=== PATIENT | male | born 1950 | race Hispanic/Latino ===

== ENCOUNTER 2018-01-15 06:52 | Day surgery (SDC) | payer OTHER, MEDICARE ==
[2018-01-06 16:39] VITALS: BP 124/59
[2018-01-06 16:49] LABS: BASOPHILS % (AUTO) 0.7 % (0.0-5.0); EOSINOPHILS % (AUTO) 2.5 % (0.0-8.0); HEMATOCRIT 43.5 % (42-54); LYMPHOCYTES % (AUTO) 27.3 % (21.0-51.0); MEAN CORPUSCULAR HEMOGLOBIN 30.3 pg (27.0-33.0); MEAN CORPUSCULAR HGB CONC 34.1 g/dL (32.0-36.0); MEAN CORPUSCULAR VOLUME 88.9 fL (79-99); MONOCYTES % (AUTO) 9.6 % (3.0-13.0); NEUTROPHILS % (AUTO) 59.9 % (40.0-77.0); PLATELET COUNT (AUTO) 211 K/uL (130-400); RED BLOOD CELL COUNT(AUTO) 4.89 MIL/uL (4.50-6.20); RED CELL DISTRIBUTION WIDTH 13.2 % (11.0-15.5); WHITE BLOOD COUNT (AUTO) 9.1 K/uL (4.8-10.8)
[2018-01-06 16:58] LABS: CREATININE 0.8 mg/dL (0.5-1.5); POTASSIUM 4.1 mmol/L (3.5-5.1)
[2018-01-15] VITALS (13 sets, daily range): BP systolic 105–159; BP diastolic 62–75
[~2018-01-15] VITALS: Ht 157.5 cm; Wt 59.2 kg
[~2018-01-15 06:52] MED LIST: ACET1TAB12 PO; ASPI-1197 PO; CEFTRIAXONE SODIUM 1 GM IVP SCH; DOCUSATE-SENNA PO; FINA5TAB41 PO; GENTAMICIN 80 MG/NS 100 ML PB 100 ML IV SCH; SIMV20TA6 PO; TAMS0.4C32 PO
[2018-01-15] MEDS ORDERED: LACTATED RINGERS 1000ML 1,000 ML IV ONE (07:53)
[2018-01-15] MEDS ORDERED: ONDANSETRON HCL 4 MG/2 ML VIAL ONE (09:53)
[2018-01-15] MEDS ORDERED: LIDOCAINE PF 2% 5ML ABBOJECT ONE (09:53)
[2018-01-15] MEDS ORDERED: DEXAMETHASONE SOD PHOSPHATE 10MG/ML 1ML VIAL ONE (09:53)
[2018-01-15] MEDS ORDERED: NEOSTIGMINE 5MG/5ML SYR IV ONE (09:53)
[2018-01-15] MEDS ORDERED: GLYCOPYRROLATE 0.2 MG/ML 5 ML VIAL ONE (09:53)
[2018-01-15] MEDS ORDERED: MIDAZOLAM HCL 1 MG/ML 2ML VIAL ONE (09:54)
[2018-01-15] MEDS ORDERED: FENTANYL CITRATE PF 50 MCG/1 ML 2ML VIAL ONE (09:54)
[2018-01-15] MEDS ORDERED: PROPOFOL 10 MG/ML 20ML VIAL IV ONE (09:54)
[2018-01-15] MEDS ORDERED: ROCURONIUM BROMIDE 10MG/1ML 5ML VL ONE (09:54)
[2018-01-15] MEDS ORDERED: EPHEDRINE SULFATE 50 MG/ML AMPULE ONE (10:30)
[2018-01-15] MEDS ORDERED: OPIUM/BELLADONNA ALKALOIDS 1 EACH SUPP.RECT RC ONE (11:21)
[2018-01-15] MEDS ORDERED: PHENAZOPYRIDINE HCL 200 MG TABLET ONE (12:01)
== END 2018-01-15 12:56 | disposition home or self-care (01) ==
LOC: DAH 06:52
PROVIDERS: ATTEND Urology
DX: N40.1 Benign prostatic hyperplasia with lower urinary tract symptoms (principal); R33.9 Retention of urine, unspecified; Z98.890 Other specified postprocedural states; I10 Essential (primary) hypertension
CPT/HCPCS: 36415; 52648; 80048; 85025; 88305; A4218; A4340; A4354; A4358; A4510 ×2; A4606; A4930; A5113; J0696; J1100; J1580; J2001; J2405; J2704; J2710; J3010; J3490 ×3; J7030 ×2; J7120; J2250

== ENCOUNTER → 2019-06-16 | Outpatient (CLI) | payer OTHER, MEDICARE ==
[~2019-06-16] MED LIST changes: -ACET1TAB12 PO; -ASPI-1197 PO; -CEFTRIAXONE SODIUM 1 GM IVP SCH; -DOCUSATE-SENNA PO; -GENTAMICIN 80 MG/NS 100 ML PB 100 ML IV SCH; -SIMV20TA6 PO
== END | disposition home or self-care (01) ==
LOC: RAH 13:24
PROVIDERS: ATTEND Otolaryngology Plastic Surgery within the Head & Neck
DX: R22.1 Localized swelling, mass and lump, neck (principal)
CPT/HCPCS: 76536

== ENCOUNTER → 2019-06-27 | Outpatient (CLI) | payer OTHER, MEDICARE ==
[~2019-06-27] MED LIST changes: +IOHEXOL-350 50ML VIAL IV ONE
== END | disposition home or self-care (01) ==
LOC: RAH 13:27
PROVIDERS: ATTEND Family Medicine
DX: R22.1 Localized swelling, mass and lump, neck (principal); J44.9 Chronic obstructive pulmonary disease, unspecified; M47.812 Spondylosis without myelopathy or radiculopathy, cervical region
CPT/HCPCS: 70492; Q9967